=== PATIENT | female | born 1930 | race Caucasian/White ===

== ENCOUNTER → 2017-01-02 | Outpatient (CLI) | payer MEDICARE ==
[~2017-01-02] MED LIST: CALCIUM OR; CARD120C3 PO; COUM1TAB17 PO; FISH1000 PO; HYDR12.55 PO; HYDR12CA PO; IRON65TA PO; PEG1POW PO; SENO8.6T10 PO; TRAM50TA2 PO; [UNRECOGNIZED DRUG - OTHER] OR
[2017-01-02 12:25] LABS: MEAN CORPUSCULAR HGB CONC 32.8 g/dl (32.0-36.5); MEAN CORPUSCULAR VOLUME 91.6 fl (80.0-96.0); RED CELL DISTRIBUTION WIDTH 14.2 % (11.5-14.5); WHITE BLOOD COUNT 3.8 K/mm3 (4.0-10.0)
[2017-01-02 12:45] LABS: INR 0.95
[2017-01-02 12:53] LABS: ALBUMIN 3.6 GM/DL (3.2-5.2); ALBUMIN/GLOBULIN RATIO 1.24 (1.00-1.93); ALKALINE PHOSPHATASE 68 U/L (45-117); ALT/SGPT 14 U/L (12-78); ANION GAP 6 MEQ/L (8-16); AST/SGOT 13 U/L (15-37); BILIRUBIN,TOTAL 0.3 MG/DL (0.2-1.0); BLOOD UREA NITROGEN 17 MG/DL (7-18); CALCIUM LEVEL 9.1 MG/DL (8.8-10.2); CARBON DIOXIDE LEVEL 30 MEQ/L (21-32); CHLORIDE LEVEL 107 MEQ/L (98-107); CREATININE FOR GFR 0.94 MG/DL (0.55-1.02); GLOMERULAR FILTRATION RATE > 60.0 (>32); GLUCOSE, FASTING 91 MG/DL (83-110); POTASSIUM SERUM 4.3 MEQ/L (3.5-5.1); SODIUM LEVEL 143 MEQ/L (136-145); TOTAL PROTEIN 6.5 GM/DL (6.4-8.2)
--- NOTE | 2017-01-02 20:26 | ECGEPIP ---
Stationary ECG Study [facility] Test Date: 2017-01-02 Pat Name: RICHY BRITT Department: Room: - Gender: F Associate Medical Director: RF : [id number] Requested By: Krista Gil Order Number: [id number] Reading MD: Arnel Boucher Measurements Intervals [place] Rate: 66 P: 66 OK: 164 QRS: 23 QRSD: 95 T: 30 QT: 409 QTc: 429 Interpretive Statements SINUS RHYTHM Previous tracing 09-03-16 showed atrial fibrillation Electronically Signed On 01-02-2017 20:25:42 EST by Arnel Boucher
== END ==
LOC: M ADMPAT 10:06
PROVIDERS: ATTEND Orthopaedic Surgery
DX: Z01.818 Encounter for other preprocedural examination (principal); Z79.899 Other long term (current) drug therapy

== ENCOUNTER 2017-01-20 10:23 | Inpatient (IN) | payer MEDICARE ==
[2017-01-02 11:34] VITALS: BP 140/74
--- NOTE | 2017-01-17 06:56 | HPE ---
DATE OF ADMISSION: 01/20/2017 CHIEF COMPLAINT: Right knee pain. HISTORY OF PRESENT ILLNESS: This is a pleasant 87-year-old female with progressively worsening right knee pain and stiffness. She has failed to improve with conservative treatment. She has elected for surgery for her continued symptoms. She has pain with weightbearing activities and her activities of daily living. X-rays of her knee are notable for advanced osteoarthritis of the right knee joint. She has consented for a right total knee arthroplasty by Dr. Jeffery Sarmiento. Medical optimization was performed by Dr. Quintanilla. ALLERGIES: None. CURRENT MEDICATIONS: - hydrochlorothiazide 12.5 mg a day - Cartia XT 120 mg a day - calcium 600 mg a day PAST MEDICAL HISTORY (includes): 1. Hypertension. 2. Atrial fibrillation. PAST SURGICAL HISTORY (Includes): 1. Meniscectomy. 2. Laser eye surgery. 3. Left total knee arthroplasty. SOCIAL HISTORY: This patient is retired. She does not smoke and she rarely drinks alcohol. FAMILY HISTORY: Noncontributory. REVIEW OF SYSTEMS: This patient denies chest pain, heart palpitations, cough, wheezing, difficulty breathing and shortness of breath. She denies abdominal pain, nausea, vomiting, diarrhea or constipation. She denies upper respiratory infection or urinary tract infection symptoms. She does complain of persistent pain in her right knee and pain with weightbearing activities in her right knee. PHYSICAL EXAMINATION: General: She is well-nourished, well-developed in no acute distress, adult female patient. She walks with a moderate limp favoring her right lower extremity. She is not using assistive devices. Vital Signs: She is 61 inches tall, weighs 204 pounds, with a temperature of 96.6, blood pressure 140/80, pulse 68, and respirations of 13. Neck was supple without adenopathy or jugular venous distension. There were no carotid bruits appreciated upon auscultation. Lungs were clear to auscultation, without rales or wheeze throughout. Heart: Irregular rate and rhythm. Abdomen: Bowel sounds were present. Extremities: Examination of the knee revealed intact skin without erythema, edema or ecchymosis. She had decreased range of motion secondary to pain and stiffness. The limb is neurovascularly intact. LABORATORY DATA: Chest x-ray showed mild hyperinflation, no acute cardiopulmonary disease processes. Electrocardiogram (EKG) showed sinus rhythm at 66 beats per minute daily. Urinalysis (UA) showed 1+ bacteria with a specific gravity 1.09. Urine culture showed no growth. PT was 12.8, INR 0.95. Glucose 91, BUN 17, creatinine 0.94. Sodium 143, potassium 4.3. CBC showed a white count of 3.8, red count of 3.73, hemoglobin of 11.2, hematocrit of 34.2, otherwise within normal limits, with a sedimentation rate of 24. Nasal and sinus culture showed few growth of Staph aureus. IMPRESSION: Symptomatic osteoarthritis of the right knee joint. PLAN: Consented for a right total knee arthroplasty by Dr. Jeffery Sarmiento.
[~2017-01-20] VITALS: Ht 157.5 cm; Wt 90.7 kg
[2017-01-20] MEDS ORDERED: LR 1,000 ML IV SCH ×2 (10:45→18:00)
[2017-01-20] MEDS: LR 1,000 ML IV SCH ×3 (10:45→20:00)
[2017-01-20] MEDS ORDERED: ACETAMINOPHEN 500 MG TAB PO ONE (11:00)
[2017-01-20] MEDS ORDERED: COUM1TAB17 PO (11:33)
[2017-01-20] MEDS ORDERED: TRANEXAMIC ACID 100 MG/ML 10ML VIAL As Ordered ONE (13:35)
[2017-01-20] MEDS ORDERED: ROPIvacaine 0.5% 30 ML INJECTION (J2795) As Ordered ONE (13:35)
[2017-01-20] MEDS ORDERED: fentaNYL 100 MCG/2 ML INJECTION (J3010) As Ordered ONE ×2 (13:35→14:02)
[2017-01-20] MEDS ORDERED: BUPIVACAINE HCL 0.5% 10 ML VIAL As Ordered ONE (13:35)
[2017-01-20] MEDS ORDERED: ceFAZolin 1GM INJ (J0690) As Ordered ONE (13:36)
[2017-01-20] MEDS ORDERED: EPINEPHrine INJ 1 MG/ML 1ML VIAL/AMP As Ordered ONE (13:36)
[2017-01-20] MEDS ORDERED: MIDAZOLAM INJ 2 MG/2 ML VIAL (J2250) As Ordered ONE ×2 (14:02→16:18)
[2017-01-20] MEDS ORDERED: fentaNYL 100 MCG/2 ML INJECTION (J3010) IV ONE (15:00)
[2017-01-20] MEDS ORDERED: MIDAZOLAM INJ 2 MG/2 ML VIAL (J2250) IV ONE (15:00)
[2017-01-20] MEDS ORDERED: fentaNYL 100 MCG/2 ML INJECTION (J3010) IV PRN ×2 (15:00→18:00)
[2017-01-20] MEDS ORDERED: ePHEDrine SULFATE 25 MG/5 ML(5MG/ML) SYRINGE As Ordered ONE (16:18)
[2017-01-20] MEDS ORDERED: PROPOFOL 200 MG/20 ML VIAL As Ordered ONE ×2 (16:18→16:40)
[2017-01-20] MEDS ORDERED: ONDANSETRON 4MG/2ML VIAL (J2405) As Ordered ONE (16:18)
[2017-01-20] MEDS ORDERED: LIDOCAINE 2% INJ 100 MG/5 ML SDV (FOR ANES.) As Ordered ONE (16:18)
[2017-01-20] MEDS ORDERED: WARFARIN SOD 5 MG TAB PO ONE (17:00)
[2017-01-20] MEDS ORDERED: MORPHINE PCA 1MG/ML 100ML CADD As Ordered ONE (17:43)
[2017-01-20] MEDS ORDERED: ONDANSETRON 4MG/2ML VIAL (J2405) IV PRN (18:00)
[2017-01-20] MEDS ORDERED: diphenhydrAMINE INJ 50MG/ML VIAL (J1200) IV PRN (18:00)
[2017-01-20] MEDS ORDERED: PATIENT IS CURRENTLY ON AN ON-Q PAIN BUSTER PAIN RELIEF SYSTEM XX SCH (18:00)
[2017-01-20] MEDS ORDERED: FLEET ENEMA PR PRN (18:00)
[2017-01-20] MEDS ORDERED: MORPHINE PCA 1MG/ML 100ML CADD IV PRN (18:00)
[2017-01-20] MEDS ORDERED: NALBUPHINE HCL 10 MG/ML AMP (J2300) IV PRN (18:00)
[2017-01-20] MEDS ORDERED: NALOXONE INJ 0.4 MG/1 ML VIAL (J2310) IV PRN (18:00)
[2017-01-20] MEDS ORDERED: EPIDURAL/PCA KEYS XX PRN (18:00)
[2017-01-20 19:00] VITALS: BP 188/84
--- NOTE | 2017-01-20 19:34 | RO ---
DATE OF PROCEDURE: 01/20/2017 PREPROCEDURE DIAGNOSIS: Right knee degenerative arthritis. POSTPROCEDURE DIAGNOSIS: Right knee degenerative arthritis. PROCEDURE: Right total knee arthroplasty using a size 4 narrow cruciate retaining femoral component and size 3 tibial tray with a 12.5 mm rotating platform polyethylene insert with a 35 mm polyethylene button. All components were cemented. Prostheses made by [employer]. It was a PFC knee. SURGEON: Krista Arciniega MD FOOT ROENTGENOLOGIST: Mr. Ramon Eden ANESTHESIA: Spinal. ESTIMATED BLOOD LOSS: 250 mL because of venous oozing from her varicosities. SPECIMENS: Joint surface. COMPLICATIONS: DESCRIPTION OF PROCEDURE: Antibiotics were given intravenously preoperatively, then a successful spinal anesthetic was induced. Tourniquet placed on the right upper thigh. She had a very large thigh, triangular in shape. We had to tape the tourniquet up high to make it hold so it would slip. Her right lower extremity was prepped and draped in the usual sterile fashion. The leg was elevated. After the appropriate time out the tourniquet was inflated to 275 mmHg and then 300 mmHg. A longitudinal incision was made for a medial parapatellar approach to the knee. There were several large varicosities in the subcutaneous tissues which are carefully coagulated as we proceeded down to the capsule before doing the medial parapatellar arthrotomy. Once the arthrotomy was done I then dissected around the proximal medial portion of the tibia and then everted the patella and flexed the knee. Drill was placed down the center of the femoral canal. I removed the remaining articular cartilage of the medial femoral condyle such that the jig would fit as flush as possible, set at 5 degree valgus cut for a right knee at 10 mm resection level. Distal femoral block was applied. Distal femoral block was applied. Distal femoral cut performed. The anterior-posterior sizing jig was measured between a 3 and a 4 but it was closest to a 4. We placed a 4 on her opposite left knee successfully. We went with the 4. The 3 degree external rotation jig was pinned and then the 4-in-1 block applied and then the anterior and posterior chamfer cuts were performed. We then exposed the proximal tibia and we used the extramedullary alignment jig to be sure we were parallel to the mechanical axis, referenced off of the lateral tibial condyle at 4 mm resection level. We pinned the block in that position and the secondary john confirmed we had good alignment. Proximal tibial osteotomy was then performed. Laminar hat model was then placed medially and a completion medial meniscectomy performed. Debridement of the posteromedial osteophytes that remained were removed and then we placed laminar hat model laterally and performed a medial meniscectomy with debridement of the posteromedial osteophytes. We then trialed spacer blocks. The 10 was a little snug medially but she had some excessive lateral laxity. I went back and did a bit more of a posterior medial release and then I trialed the 12.5, and that seemed to give her the best stability. She was a bit tight in extension but as I stretched out the posterior cruciate ligament (PCL) and it released nicely and she had good extension with a 12.5 and good stability to varus, valgus stress testing both in flexion and in extension. Thus, I felt this was the appropriate size. I then exposed the proximal tibia sized for a #3 tibial tray, which was pinned, reamed and broached into position. Followed by the trial polyethylene and the trial femoral component. The knee was brought into extension. Everted the patella and performed a patellar osteotomy sized for a 35 mm button. The lug holes were drilled. Trial patellofemoral tracking was anatomic. I then drilled the lug holes for the femur and removed all trial components. My players assistant, Mr. Ramon Eden, mixed the cement on the back table as I prepared the bony surfaces for cementing with copiously amount of pulsatile lavage irrigant solution. I tried to dry the bony surfaces as thoroughly as possibly but there was still some venous ooze. I then cemented the tibial component, removed excess cement, placed the polyethylene. Then, we cemented the femoral component and removed excess cement and brought the knee into extension, everted the patella and cemented the patellar component, removed excess cememnt. The clamp was held until the cement had hardened. While we were waiting for that we copiously pulsatile lavage irrigated out the knee joint once again as I did several times throughout the operation. Once the cement had hardened I then closed the apex of the arthrotomy with interrupted #0 PDS suture and then closed the medial parapatellar area with #0 PDS suture. I then ran the capsule with a double-armed #1 PDS STRATAFIX suture. The tourniquet was then released. She had excellent range of motion at the closure of the capsule. PainBuster was then placed percutaneously through the capsule after we closed the capsule. The subdermal tissues were closed with interrupted #2-0 PDS sutures. Skin was closed with evonne, covered by Adaptic dry sterile bulky dressing. Tourniquet as mentioned was released after we closed the arthrotomy and this ceased the venous oozing. Otherwise she was sterilely dressed and then transferred to the recovery room in stable condition. There were no intraoperative complications.
[2017-01-20 20:00] VITALS: BP 151/70
--- NOTE | 2017-01-20 20:03 | CR ---
DATE OF CONSULTATION: 01/20/2017 REFERRING PHYSICIAN: Dr. Sarmiento REASON FOR CONSULTATION: Medical management. HOSPITALIZATION COURSE: The patient is an 87-year-old female with a past medical history of paroxysmal atrial fibrillation, essential hypertension, osteoarthritis, reactive airway disease, presented to [facility] on 01/20/2017 for the right knee replacement. The patient has had osteoarthritis, and it has been interfering with her daily activity functions. The patient had a left knee replacement, and the patient was in the hospital from 09/01/2016 until 09/05/2016. The patient was seen in the recovery room. The patient denies any acute complaints. The patient tolerated the procedure well. Last time when the patient had a left knee replacement, during the hospitalization, the patient was found to have atrial fibrillation (a fib) with rapid ventricular response (RVR) and the patient had to be placed on a Cardizem drip, and the patient was anticoagulated with warfarin. Today, during the admission process, the patient was found to be in sinus rhythm on cardiac telemetry. There was also an EKG on 01/02/2017, which is sinus rhythm. The patient's preoperative clearance was performed by Natalia Munoz, and the preoperative clearance was performed on 01/12/2017. PAST MEDICAL HISTORY: Paroxysmal atrial fibrillation postoperatively in August of 2016. Essential hypertension. Osteoarthritis. Reactive airway disease. PAST SURGICAL HISTORY: Left knee replacement. ALLERGIES: LISINOPRIL. SOCIAL HISTORY: Denies smoking. Denies alcohol use. Denies recreational drug use. REVIEW OF SYSTEMS: General: No fever, no chills. HEENT: No vision changes. No auditory changes. Wears corrective lenses. Cardiovascular: History of paroxysmal atrial fibrillation occurring in August 2016. Denies any chest pain or palpitations. Respiratory: No shortness of breath. No cough. No sputum production. Gastrointestinal (GI): No nausea, no vomiting, no abdominal pain. Musculoskeletal: The patient has osteoarthritis. Had a left knee replacement done previously. Today, the patient had a right knee replacement. Neurological: Denies any numbness. No tingling. OBJECTIVE: Vital signs: Temperature is 97, pulse 81, respirations 18, blood pressure is 188/84, pulse oximetry is 98% with 2 liters nasal cannula. General: No signs of acute distress. Alert and oriented times three. HEENT: Normocephalic, atraumatic. Extraocular motor grossly intact. Cardiovascular: Positive S1, S2. Regular rate. Lungs: Clear to auscultation bilaterally. Abdomen: Soft, nontender, nondistended. Bowel sounds present. No rebound, no guarding. Extremities: The knee was wrapped with a dressing. No lower extremity edema. Compression stockings in place. LABORATORY DATA: Done on 01/02/2017 shows WBC of 3.8, hemoglobin 11.2, hematocrit 34.2, platelet count is 233. Sodium is 143, potassium 4.3, chloride 107, carbon dioxide 30, BUN 17, creatinine 0.94, GFR greater than 60, fasting glucose 91, calcium is 9.1, magnesium 2.1, total bilirubin is 0.3, AST 13, ALT 14, alkaline phosphatase is 68, albumin 3.6, total protein 6.5. ASSESSMENT AND PLAN: 1. Right knee replacement by Dr. Sarmiento on 01/20/2017. Will defer the diet, activity level, anticoagulation and pain control per primary orthopedic team. 2. Hypertension. The patient was restarted on the Cartia. Currently, hydrochlorothiazide is on hold. Will restart it at the appropriate time if needed. 3. History of paroxysmal atrial fibrillation. It occurred during last hospitalization after the patient's left knee replacement. The patient was on a Cardizem drip previously. The patient was anticoagulated with warfarin. The most recent EKG on 01/02/2017 the patient was shown to have a sinus rhythm. During physical examination, I do not appreciate any cardiac irregularities. The patient will have a repeat EKG tomorrow morning. 4. History of reactive airway disease. Stable. 5. Deep vein thrombosis (DVT) prophylaxis. The patient currently has thromboembolism deterrents (TEDs), sequential compression device. We will defer the anticoagulation to the primary team.
[2017-01-20] MEDS: ONDANSETRON 4MG/2ML VIAL (J2405) IV PRN (20:30)
[2017-01-20 21:00] VITALS: BP 145/69
[2017-01-20 22:00] VITALS: BP 167/81
[2017-01-20] MEDS: SENOKOT S TAB PO SCH (22:00)
[2017-01-21 02:00] VITALS: BP 158/81
[2017-01-21] MEDS: ONDANSETRON 4MG/2ML VIAL (J2405) IV PRN (02:34)
[2017-01-21 06:00] VITALS: BP 166/87
[2017-01-21] MEDS: LR 1,000 ML IV SCH (06:02)
[2017-01-21 07:55] LABS: MEAN CORPUSCULAR HGB CONC 31.1 g/dl (32.0-36.5); MEAN CORPUSCULAR VOLUME 93.2 fl (80.0-96.0); RED CELL DISTRIBUTION WIDTH 14.3 % (11.5-14.5)
[2017-01-21] MEDS: PERCOCET 5MG/325MG TAB PO PRN ×3 (07:55→22:40)
[2017-01-21] MEDS: ONDANSETRON 4 MG TAB (S0181) PO PRN ×3 (07:55→17:49)
[2017-01-21 08:01] LABS: INR 1.17
[2017-01-21 08:12] LABS: CALCIUM LEVEL 8.4 MG/DL (8.8-10.2); CREATININE FOR GFR 1.01 MG/DL (0.55-1.02); GLOMERULAR FILTRATION RATE 55.5 (>32); POTASSIUM SERUM 4.3 MEQ/L (3.5-5.1)
[2017-01-21] MEDS: MOM 30ML SUSPENSION UDC PO SCH ×2 (09:58→11:08)
[2017-01-21] MEDS: MIRALAX *UNIT DOSE* 17GM PACKET PO SCH ×2 (09:58→11:08)
[2017-01-21] MEDS: SENOKOT S TAB PO SCH ×2 (09:58→21:00)
--- NOTE | 2017-01-21 10:28 | IPN ---
DATE: 01/21/2017 The patient is seen and examined at the bedside. Chart has been reviewed. This morning, the patient's pain is well controlled. No complaints of chest pain, pressure, tightness, shortness of breath, nausea, vomiting, abdominal pain, dizziness, or lightheadedness. She has not ambulated this morning yet. No other issues per nursing overnight. She has remained afebrile. No complaints of chills. Temperature 96.5, pulse 79 and sinus, respiratory rate 16, blood pressure 166/87 , 97% on 2 liters nasal cannula. LUNGS: Clear to auscultation. No wheezes, rales, or rhonchi. HEART: S1, S2. Sinus rhythm. ABDOMEN: Soft, nontender, nondistended. Positive bowel sounds. EXTREMITIES: No cyanosis or clubbing. The patient has right postoperative knee. Skin is warm, dry and pink in color. 2+ pulses bilateral dorsalis pedis and posterior tibialis. LABORATORY DATA: CBC, metabolic panel, INR have been reviewed. ASSESSMENT AND PLAN: This is an 87-year-old female with a history of paroxysmal atrial fibrillation since August 2016, hypertension, osteoarthritis, reactive airway disease, left knee replacement, presented on 01/20/2017 for a right knee replacement due to severe osteoarthritis. CURRENT ISSUES: 1. Right knee replacement by Dr. Sarmiento on 01/20/2017. Diet, activity, anticoagulation, pain control per primary orthopedic team. 2. Hypertension. The patient was started on Cartia. Currently held hydrochlorothiazide. The patient has no complaints of chest pain, pressure or tightness, headaches or changes in vision. We will start on Norvasc 10 mg daily for better blood pressure control. 3. History of paroxysmal atrial fibrillation. Currently, rate controlled on anticoagulation and Cartia. We will continue to monitor. 4. History of reactive airway disease, as needed nebulizers. Currently compensated. MTDD
[2017-01-21 10:30] VITALS: BP 170/78
[2017-01-21] MEDS ORDERED: IPRATROPIUM 0.5MG/ALBUTEROL 2.5MG INH SOL UD 3ML (DUONEB)(J7620) NEB PRN (10:30)
[2017-01-21] MEDS ORDERED: amLODIPine 10 MG TAB PO ONE (10:30)
--- NOTE | 2017-01-21 12:14 | REP ---
Clinical: Status post knee replacement. Technique AP and cross-table lateral views. Findings: The patient is status post left knee replacement with normal positioning and appearance to the femoral and tibial components. Overlying postsurgical changes appreciated. Impression: Status post left knee replacement. Signed by Ilan Peterson MD 01/21/2017 12:05 P
[2017-01-21 14:00] VITALS: BP 163/72
[2017-01-21] MEDS ORDERED: WARFARIN SOD 5 MG TAB PO ONE (17:00)
[2017-01-21 22:00] VITALS: BP 129/83
[2017-01-22] MEDS: PERCOCET 5MG/325MG TAB PO PRN ×3 (01:47→10:59)
[2017-01-22 06:00] VITALS: BP 140/63
[2017-01-22 08:04] LABS: MEAN CORPUSCULAR HEMOGLOBIN 29.1 pg (27.0-33.0); MEAN CORPUSCULAR HGB CONC 32.4 g/dl (32.0-36.5); MEAN CORPUSCULAR VOLUME 90.1 fl (80.0-96.0); RED CELL DISTRIBUTION WIDTH 14.2 % (11.5-14.5); WHITE BLOOD COUNT 8.3 K/mm3 (4.0-10.0)
[2017-01-22 08:10] LABS: INR 1.61
[2017-01-22 08:14] LABS: ANION GAP 5 MEQ/L (8-16); BLOOD UREA NITROGEN 19 MG/DL (7-18); CALCIUM LEVEL 7.9 MG/DL (8.8-10.2); CARBON DIOXIDE LEVEL 31 MEQ/L (21-32); CHLORIDE LEVEL 103 MEQ/L (98-107); CREATININE FOR GFR 0.89 MG/DL (0.55-1.02); GLOMERULAR FILTRATION RATE > 60.0 (>32); GLUCOSE, FASTING 132 MG/DL (83-110); SODIUM LEVEL 139 MEQ/L (136-145)
[2017-01-22 08:15] VITALS: O2SAT 95
[2017-01-22] MEDS: MIRALAX *UNIT DOSE* 17GM PACKET PO SCH (08:16)
[2017-01-22] MEDS: SENOKOT S TAB PO SCH ×2 (08:17→20:14)
[2017-01-22] MEDS: MOM 30ML SUSPENSION UDC PO SCH (08:18)
[2017-01-22] MEDS: amLODIPine 10 MG TAB PO SCH (08:18)
--- NOTE | 2017-01-22 11:25 | IPN ---
DATE OF SERVICE: 01/22/2017 The patient is seen and examined at the bedside. Chart has been reviewed. This morning, the patient still complains of severe right knee pain, especially when she ambulates. She otherwise denies any cough, shortness of breath, chest pain, pressure, tightness, palpitations, lightheadedness. Slept well. Tolerating her diet well. No nausea, vomiting, or diarrhea. Temperature 98.6, pulse 84, respiratory rate 16, blood pressure 131/62, 91% on room air. LUNGS: Clear to auscultation. No wheezing, rales, or rhonchi. HEART: S1, S2. Sinus rhythm. ABDOMEN: Soft, nontender, nondistended. Positive bowel sounds. EXTREMITIES: No cyanosis or clubbing. Sequentials are on bilateral lower extremities. Right postoperative knee. SKIN: Warm, dry, and pink in color. 2+ pulses bilateral dorsalis pedis and posterior tibialis. LABORATORY DATA: White count 8.3, hemoglobin 9.8, hematocrit 30, platelet count 217. Sodium 139, potassium 4, chloride 102, bicarbonate 31, BUN 19, creatinine 0.89, glucose of 132. ASSESSMENT AND PLAN: This is an 87-year-old female with a history of paroxysmal atrial fibrillation since August, hypertension, osteoarthritis, reactive airway disease, left knee replacement, presented on 01/20/2017 for a right knee replacement due to severe osteoarthritis and limitations of activities of daily living. CURRENT ISSUES: 1. Right knee replacement by Dr. Sarmiento on 01/20/2017. Diet, activity, anticoagulation, pain control per orthopedic team. 2. Hypertension. The patient has been on Cartia. Hydrochlorothiazide held perioperatively. The patient has no complaints of chest pain, pressure, or tightness, headaches, or changes in vision. Started on Norvasc for better blood pressure control with holding parameters. 3. History of paroxysmal atrial fibrillation. On Cartia. Rate controlled on Coumadin. Current international normalized ratio (INR) is 1.61. 4. History of reactive airway disease. As-needed nebulizers. MTDD
[2017-01-22 14:00] VITALS: BP 145/65
[2017-01-22] MEDS ORDERED: traMADol 50 MG TAB PO PRN (14:15)
[2017-01-22] MEDS ORDERED: WARFARIN SOD 5 MG TAB PO ONE (17:00)
[2017-01-22] MEDS: ACETAMINOPHEN TAB 650MG DOSE (2X325MG) PO PRN ×2 (17:10→18:48)
[2017-01-22 18:52] VITALS: O2SAT 94
[2017-01-22 22:00] VITALS: BP 140/63
[2017-01-22 22:58] VITALS: O2SAT 93
[2017-01-23] MEDS: ACETAMINOPHEN TAB 650MG DOSE (2X325MG) PO PRN ×4 (05:22→20:10)
[2017-01-23 06:00] VITALS: BP 137/60
[2017-01-23 07:06] LABS: MEAN CORPUSCULAR HEMOGLOBIN 29.6 pg (27.0-33.0); MEAN CORPUSCULAR HGB CONC 33.1 g/dl (32.0-36.5); MEAN CORPUSCULAR VOLUME 89.6 fl (80.0-96.0); RED CELL DISTRIBUTION WIDTH 14.4 % (11.5-14.5); WHITE BLOOD COUNT 7.5 K/mm3 (4.0-10.0)
[2017-01-23 07:43] LABS: ANION GAP 6 MEQ/L (8-16); BLOOD UREA NITROGEN 22 MG/DL (7-18); CALCIUM LEVEL 8.2 MG/DL (8.8-10.2); CARBON DIOXIDE LEVEL 32 MEQ/L (21-32); CHLORIDE LEVEL 102 MEQ/L (98-107); CREATININE FOR GFR 0.84 MG/DL (0.55-1.02); GLOMERULAR FILTRATION RATE > 60.0 (>32); GLUCOSE, FASTING 108 MG/DL (83-110); POTASSIUM SERUM 4.1 MEQ/L (3.5-5.1); SODIUM LEVEL 140 MEQ/L (136-145)
[2017-01-23 08:30] VITALS: O2SAT 97
[2017-01-23] MEDS: MOM 30ML SUSPENSION UDC PO SCH (09:00)
[2017-01-23] MEDS: MIRALAX *UNIT DOSE* 17GM PACKET PO SCH (09:17)
[2017-01-23] MEDS: amLODIPine 10 MG TAB PO SCH (09:18)
[2017-01-23] MEDS: SENOKOT S TAB PO SCH ×2 (09:18→20:10)
[2017-01-23 12:00] VITALS: BP 134/68
[2017-01-23 14:00] VITALS: BP 158/70
[2017-01-23] MEDS ORDERED: WARFARIN SOD 1 MG TAB PO ONE (17:00)
[2017-01-23 22:00] VITALS: BP 170/79
[2017-01-24] MEDS: ACETAMINOPHEN TAB 650MG DOSE (2X325MG) PO PRN ×3 (01:19→13:45)
[2017-01-24 05:46] LABS: MEAN CORPUSCULAR HEMOGLOBIN 29.4 pg (27.0-33.0); MEAN CORPUSCULAR HGB CONC 32.7 g/dl (32.0-36.5); RED CELL DISTRIBUTION WIDTH 14.2 % (11.5-14.5); WHITE BLOOD COUNT 6.6 K/mm3 (4.0-10.0)
[2017-01-24 05:57] LABS: INR 1.94
[2017-01-24 06:00] VITALS: BP 168/78
[2017-01-24 06:03] LABS: ANION GAP 6 MEQ/L (8-16); BLOOD UREA NITROGEN 22 MG/DL (7-18); CALCIUM LEVEL 8.2 MG/DL (8.8-10.2); CARBON DIOXIDE LEVEL 31 MEQ/L (21-32); CHLORIDE LEVEL 105 MEQ/L (98-107); CREATININE FOR GFR 0.84 MG/DL (0.55-1.02); GLOMERULAR FILTRATION RATE > 60.0 (>32); GLUCOSE, FASTING 122 MG/DL (83-110); POTASSIUM SERUM 3.9 MEQ/L (3.5-5.1); SODIUM LEVEL 142 MEQ/L (136-145)
[2017-01-24] MEDS ORDERED: TRAM50TA2 PO (07:12)
[2017-01-24] MEDS ORDERED: COUM2.5T11 PO (07:12)
[2017-01-24] MEDS ORDERED: MAGNESIUM CITRATE 300 ML BTL PO ONE (08:15)
[2017-01-24] MEDS: MOM 30ML SUSPENSION UDC PO SCH (08:37)
[2017-01-24] MEDS: amLODIPine 10 MG TAB PO SCH (08:38)
[2017-01-24 08:39] VITALS: BP 168/78
[2017-01-24] MEDS: SENOKOT S TAB PO SCH (08:39)
[2017-01-24] MEDS: MIRALAX *UNIT DOSE* 17GM PACKET PO SCH (08:40)
--- NOTE | 2017-01-27 17:44 | DSES ---
DATE OF ADMISSION: 01/20/2017 DATE OF DISCHARGE: 01/24/2017 ADMISSION DIAGNOSIS: Osteoarthritis right knee. ATTENDING PHYSICIAN: Dr. Jeffery Sarmiento. OTHER DIAGNOSES: 1. Hypertension. 2. Atrial fibrillation. 3. Reactive airway disease. DISCHARGE DIAGNOSIS: Osteoarthritis right knee status post right total knee arthroplasty. OPERATION PERFORMED: Right total knee arthroplasty. HISTORY: This is a pleasant 87-year-old female with progressively worsening right knee pain and stiffness. She failed to improve with conservative management. She was admitted for elective knee replacement on the right side. HOSPITAL COURSE: Patient was admitted on day of surgery, underwent a right total knee arthroplasty which was uneventful. She did well in the postoperative period, though she did have some difficulties with pain control. Ultimately, her pain was controlled. On day of discharge she was doing well, weightbearing as tolerated on her right lower extremity. She will move her right knee to prevent stiffness. She will use adjusted dose Coumadin and thromboembolitic deterrent (UCHE) stockings for 30 days postoperative for deep venous thrombosis (DVT) prophylaxis. She will resume her preoperative medications and diet. She was given instructions to include, but not limited to, wound monitoring, activity limitations. She will use oral pain medications for pain control. She will follow up in our office in 7-10 days for surgical followup. Please refer the medical record for further details.
== END 2017-01-24 14:05 | disposition home health service (06) | DRG 470 ==
LOC: M OR 10:23 → M MS5PR 18:55
PROVIDERS: ADMIT Orthopaedic Surgery; ATTEND Orthopaedic Surgery
PROC: 0SRC0J9 Replacement of Right Knee Joint with Synthetic Substitute, Cemented, Open Approach (ICD-10-PCS; principal; 2017-01-20 13:15)
DX: M17.11 Unilateral primary osteoarthritis, right knee (principal); I10 Essential (primary) hypertension; I48.0 Paroxysmal atrial fibrillation; J45.909 Unspecified asthma, uncomplicated; R26.89 Other abnormalities of gait and mobility; I83.91 Asymptomatic varicose veins of right lower extremity; Z79.899 Other long term (current) drug therapy; Z96.652 Presence of left artificial knee joint; Z88.8 Allergy status to other drugs, medicaments and biological substances

== ENCOUNTER → 2017-02-02 | Outpatient (REF) | payer MEDICARE ==
[~2017-02-02] MED LIST changes: +COUM2.5T11 PO
[2017-02-02 13:34] LABS: INR 1.38
== END ==
LOC: M LABDRAW1 12:00
PROVIDERS: ATTEND Orthopaedic Surgery
DX: Z51.81 Encounter for therapeutic drug level monitoring (principal); Z79.01 Long term (current) use of anticoagulants

== ENCOUNTER → 2019-08-12 | Outpatient (CLI) | payer MEDICARE ==
[~2019-08-12] MED LIST changes: -COUM2.5T11 PO; +COUM2.5T17 PO; +IRON65TA2 PO; +LOSA25TA14 PO; +OMEP20TA9 PO; +RANI15TA PO; +[UNRECOGNIZED DRUG - CODE] PO
[2019-08-12 10:18] LABS: COLLAGEN EPINEPHRINE 178 SECONDS (74-162)
[2019-08-12 10:29] LABS: COLLAGEN ADP 115 SECONDS (56-103)
== END ==
LOC: M LAB 09:20
PROVIDERS: ATTEND Ophthalmology
DX: H57.811 Brow ptosis, right (principal)

== ENCOUNTER 2021-08-13 13:36 | Outpatient (CLI) | payer MEDICARE ==
[~2021-08-13] VITALS: Ht 157.5 cm; Wt 81.8 kg
[~2021-08-13 13:36] MED LIST changes: +B-122500 PO; +GABA-1171 PO; +OMEP20TA2 PO; -OMEP20TA9 PO; -PEG1POW PO; +POLY17PO18 PO; +PRESCAP PO
[2021-08-13 13:45] VITALS: BP 195/86
[2021-08-13] MEDS ORDERED: ACETAMINOPHEN TAB 650MG DOSE (2X325MG) PO ONE (14:05)
[2021-08-13] MEDS ORDERED: diphenhydrAMINE 25MG CAP PO ONE (14:05)
== END 2021-08-13 15:00 | disposition home or self-care (01) ==
LOC: M INFU 13:36
PROVIDERS: ATTEND Specialist
DX: D64.9 Anemia, unspecified (principal); C18.9 Malignant neoplasm of colon, unspecified

== ENCOUNTER → 2021-09-11 | Outpatient (CLI) | payer MEDICARE ==
[~2021-09-11] VITALS: Ht 157.5 cm; Wt 81.8 kg
[~2021-09-11] MED LIST changes: +ACETAMINOPHEN TAB 650MG DOSE (2X325MG) PO ONE; +diphenhydrAMINE 25MG CAP PO ONE
[2021-09-11 13:15] VITALS: BP 194/88
[2021-09-11 14:04] VITALS: BP 194/88
[2021-09-11 14:20] VITALS: BP 192/85
[2021-09-11 15:20] VITALS: BP 194/92
[2021-09-11 15:48] VITALS: BP 170/82
== END ==
LOC: M INFU 13:06
PROVIDERS: ATTEND Specialist
DX: D64.9 Anemia, unspecified (principal)
CPT/HCPCS: 36415; 36430; 85025; 85049; 85055; 86850; 86900; 86901; 86920; P9016